=== PATIENT | female | born 1990 | race Caucasian/White ===

== ENCOUNTER 2020-08-18 11:12 | Emergency (ER) | payer OTHER ==
[~2020-08-18 11:12] MED LIST: CYCLOBENZAPRINE10 MG PO; MOBIC7.5 MG PO; NORCO 5-325 TA1 EACH PO; PREDNISONE 20MG20 MG PO; TRAMADOL HCL50 MG PO
[2020-08-18 12:34] LABS: BASOPHIL 0.3 % (0-2); EOSINOPHIL 0.7 % (0-5); HCT 43.8 % (37.0-47.0); HGB 14.2 g/dl (12.5-16.0); LYMPHOCYTE 23.6 % (15-48); MCH 29.1 pg (25.0-31.0); MCHC 32.4 g/dL (32.0-36.0); MCV 89.8 fL (78.0-100.0); MONOCYTE 6.5 % (0-12); MPV 9.9 fL (6.0-9.5); NEUTROPHIL 68.6 % (41-80); NRBC 0; PLT 192 K/uL (150-400); RBC 4.88 M/uL (4.20-5.40); RDW 13.2 % (11.5-14.0); WBC 8.6 K/uL (4.0-10.5)
[2020-08-18 12:58] LABS: ALBUMIN 3.9 g/dL (3.4-5.0); BILIRUBIN - TOTAL 0.5 mg/dL (0.2-1.0); BUN/CREAT RATIO (CALC) 23.7 RATIO; CREATININE 0.59 mg/dL (0.51-0.95); GLOBULIN (CALCULATION) 3.5 g/dL; POTASSIUM 4.4 mmol/L (3.5-5.1); TOTAL PROTEIN 7.4 g/dL (6.4-8.2)
[2020-08-18] MEDS ORDERED: NAPROXEN500 MG PO (13:46)
== END 2020-08-18 14:10 | disposition home or self-care (01) ==
LOC: FER 11:12
PROVIDERS: Emergency Medicine
DX: M54.5 Low back pain (principal); R91.8 Other nonspecific abnormal finding of lung field; N20.0 Calculus of kidney
CPT/HCPCS: 36415; 80053; 85025; J1885; J2405

== ENCOUNTER 2021-02-01 23:26 | Emergency (ER) | payer OTHER ==
[~2021-02-01 23:26] MED LIST changes: +NAPROXEN500 MG PO
[2021-02-02 00:18] LABS: BASOPHIL 0.1 % (0-2); EOSINOPHIL 0.5 % (0-5); HCT 34.7 % (37.0-47.0); HGB 11.4 g/dl (12.5-16.0); LYMPHOCYTE 9.2 % (15-48); MCH 28.7 pg (25.0-31.0); MCHC 32.9 g/dL (32.0-36.0); MCV 87.4 fL (78.0-100.0); MONOCYTE 5.8 % (0-12); MPV 9.7 fL (6.0-9.5); NEUTROPHIL 84.2 % (41-80); NRBC 0; PLT 175 K/uL (150-400); RBC 3.97 M/uL (4.20-5.40); WBC 11.1 K/uL (4.0-10.5)
[2021-02-02 01:01] LABS: ALBUMIN 2.9 g/dL (3.4-5.0); BILIRUBIN - TOTAL 0.2 mg/dL (0.2-1.0); BUN/CREAT RATIO (CALC) 28.8 RATIO; CREATININE 0.52 mg/dL (0.51-0.95); GLOBULIN (CALCULATION) 2.8 g/dL; POTASSIUM 2.8 mmol/L (3.5-5.1); TOTAL PROTEIN 5.7 g/dL (6.4-8.2)
[2021-02-02 01:41] LABS: BILIRUBIN NEGATIVE (NEGATIVE); BLOOD NEGATIVE Ery/uL (NEGATIVE); CLARITY CLEAR (CLEAR); COLOR YELLOW (YELLOW); GLUCOSE (U) NORMAL (NORMAL); LEUKOCYTES NEGATIVE Leu/uL (NEGATIVE); NITRITE NEGATIVE (NEGATIVE); PROTEIN NEGATIVE (NEGATIVE); SPECIFIC GRAVITY 1.025 (1.001-1.030); UROBILINOGEN 0.2 mg/dL (0.2-1.0)
[2021-02-02] MEDS ORDERED: PEPCID AC20 MG PO ×2 (02:05→02:06)
[2021-02-02] MEDS ORDERED: ONDANSETRON ODT4 MG PO (02:06)
== END 2021-02-02 02:20 | disposition home or self-care (01) ==
LOC: FER 23:26
PROVIDERS: Emergency Medicine
DX: R10.13 Epigastric pain (principal); Z90.49 Acquired absence of other specified parts of digestive tract
CPT/HCPCS: 36415; 71045; 80053; 81003; 82150; 83690; 85025; J1885; J2405

== ENCOUNTER 2021-11-30 12:25 | Emergency (ER) | payer OTHER ==
[~2021-11-30 12:25] MED LIST changes: +ONDANSETRON ODT4 MG PO; +PEPCID AC20 MG PO
== END 2021-11-30 15:42 | disposition home or self-care (01) ==
LOC: FER 12:25
DX: U07.1 COVID-19 (principal)
CPT/HCPCS: 99284